=== PATIENT | female | born 1990 | race African-American/Black ===

== ENCOUNTER 2017-04-09 01:24 | Emergency (ER) | payer MEDICAID ==
[~2017-04-09] VITALS: Ht 170.2 cm; Wt 85.3 kg
[2017-04-09 02:01] LABS: Basophils # (auto) 0.1 uL; Basophils % (auto) 0.8 % (0.0-2.0); Eosinophils # (auto) 0.3 uL; Eosinophils % (auto) 2.9 % (0.0-7.0); Hematocrit 33.2 % (36.0-46.0); Hemoglobin 11.2 g/dL (12.2-16.2); Lymphocytes % (auto) 19.9 % (10.0-50.0); Mean Corpuscular Hemoglobin 29.3 pg (28.0-32.0); Mean Corpuscular Hgb Conc. 33.8 g/dL (32.0-36.0); Mean Corpuscular Volume 86.7 fL (80.0-100.0); Mean Platelet Volume 8.6 fL (7.4-10.4); Monocytes # (auto) 0.7 uL; Monocytes % (auto) 6.9 % (0.0-12.0); Neutrophils # (auto) 6.8 uL; Neutrophils % (auto) 69.5 % (37.0-80.0); Nucleated Red Blood Cells % 0.1 %; Platelet Count (auto) 374 10^3/uL (140-450); Red Cell Distribution Width 15.9 % (11.6-16.0); White Blood Cell 9.8 10^3/uL (4.4-10.8)
[2017-04-09 02:25] LABS: Albumin 2.6 g/dL (3.4-5.0); Anion Gap 9 (5-15); Aspartate Aminotransferase 29 U/L (15-37); BUN/Creatinine Ratio 7.5; Blood Urea Nitrogen 4 mg/dL (7-18); Calcium 8.2 mg/dL (8.5-10.1); Carbon Dioxide 21 mmol/L (21-32); Chloride 112 mmol/L (98-107); GFR African American 177 mL/min; GFR Non-African American 146 mL/min; Glucose 87 mg/dL (74-106); Sodium 142 mmol/L (136-145)
[2017-04-09 02:27] LABS: Alkaline Phosphatase 108 U/L (45-117); Bilirubin, Total 0.9 mg/dL (0.2-1.0); Potassium 2.8 mmol/L (3.5-5.1); Total Protein 6.7 g/dL (6.4-8.2)
[2017-04-09 02:59] LABS: Urine Blood TRACE /uL (Negative); Urine Color Brown (Yellow); Urine Glucose TRACE mg/dL (Normal); Urine Hyaline Cast MANY /lpf (0 - 2); Urine Ketone 1+ (Negative); Urine Mucus MANY (None Seen); Urine Nitrite Negative (Negative); Urine RBC 4 /hpf (0 - 4); Urine Squamous Epithelial Cell MOD /hpf (<5)
[2017-04-09 03:00] LABS: Urine Bilirubin 1+ (Negative)
[2017-04-09 03:46] VITALS: BP 111/69
[2017-04-09] MEDS ORDERED: POTASSIUM CHL 20 Meq TABLET PO ONE (04:00)
== END 2017-04-09 04:41 | disposition home or self-care (01) ==
LOC: ER 01:24
DX: O26.892 Other specified pregnancy related conditions, second trimester (principal); O99.322 Drug use complicating pregnancy, second trimester; F15.10 Other stimulant abuse, uncomplicated; F17.210 Nicotine dependence, cigarettes, uncomplicated; Z3A.28 28 weeks gestation of pregnancy
CPT/HCPCS: 36415; 76805; 80053; 80307; 80320; 81001; 84702; 85025